=== PATIENT | female | born 2000 | race American Indian/Alaskan Native ===

== ENCOUNTER 2022-01-18 15:47 | Emergency (ER) | payer MEDICAID | END 2022-01-18 17:30 | disposition left against medical advice (07) | LOC: ED 15:47 | DX: O03.9 Complete or unspecified spontaneous abortion without complication (principal); Z53.21 Procedure and treatment not carried out due to patient leaving prior to being seen by health care provider; Z3A.14 14 weeks gestation of pregnancy ==